=== PATIENT | female | born 1990 | race Caucasian/White ===

== ENCOUNTER 2019-05-12 18:45 | Emergency (ER) | payer OTHER ==
--- NOTE | 2019-05-12 19:31 | RAD ---
XR Foot Lt 3 View STANDARD INDICATION: Left foot injury with left foot pain COMPARISON: None. FINDINGS: Bones: No acute fracture identified. Joints: Joints spaces appear preserved. Lisfranc alignment: Lisfranc alignment appears within normal limits. Soft tissues: No soft tissue injury demonstrated. No radiographic foreign body demonstrated. IMPRESSION: No acute osseous abnormality.
== END 2019-05-12 19:53 | disposition home or self-care (01) ==
LOC: NAV ERS 18:45
DX: S90.32XA Contusion of left foot, initial encounter (principal); W20.8XXA Other cause of strike by thrown, projected or falling object, initial encounter; Z79.899 Other long term (current) drug therapy
CPT/HCPCS: 99283